=== PATIENT | male | born 1985 | race Caucasian/White ===

== ENCOUNTER → 2020-05-12 06:34 | Outpatient (CLI) | payer OTHER | END | disposition home or self-care (01) | LOC: LAB 06:34 | PROVIDERS: ATTEND Surgery Plastic and Reconstructive Surgery | DX: Z03.818 Encounter for observation for suspected exposure to other biological agents ruled out (principal) ==

== ENCOUNTER → 2020-10-27 13:31 | Outpatient (CLI) | payer OTHER | END | disposition home or self-care (01) | LOC: LAB 13:31 | DX: I10 Essential (primary) hypertension (principal); E11.69 Type 2 diabetes mellitus with other specified complication; E03.8 Other specified hypothyroidism; E55.9 Vitamin D deficiency, unspecified ==

== ENCOUNTER 2021-03-05 07:12 | Emergency (ER) | payer OTHER ==
[~2021-03-05] VITALS: Ht 188 cm; Wt 100.7 kg
[2021-03-05] MEDS ORDERED: MEDROLPACK PO (07:37)
== END 2021-03-05 11:59 | disposition home or self-care (01) ==
LOC: ER 07:12
DX: U07.1 COVID-19 (principal); R51.9 Headache, unspecified

== ENCOUNTER 2021-07-06 06:00 | Emergency (ER) | payer OTHER ==
[~2021-07-06] VITALS: Ht 188 cm; Wt 102.5 kg
[~2021-07-06 06:00] MED LIST: MEDROLPACK PO
[2021-07-06] MEDS ORDERED: MUPIROCIN15 GM TOP (08:57)
[2021-07-06] MEDS ORDERED: AMOX-CLAV 875-1 EAC1 PO (08:57)
== END 2021-07-06 09:22 ==
LOC: ER 06:00
DX: L03.113 Cellulitis of right upper limb (principal)